=== PATIENT | female | born 1965 | race Caucasian/White ===

== ENCOUNTER → 2019-05-30 08:46 | Outpatient (BNVA) | payer BC, SELFPAY | PROVIDERS: Family Provider Nurse Practitioner Family; PCP Nurse Practitioner Family; Visit Provider Psychiatry & Neurology Psychiatry | DX: F34.1 Dysthymic disorder (principal); F41.1 Generalized anxiety disorder | CPT/HCPCS: 99213 ==

== ENCOUNTER → 2019-08-21 07:20 | Outpatient (BNVA) | payer BC, SELFPAY | PROVIDERS: Family Provider Nurse Practitioner Family; PCP Nurse Practitioner Family; Visit Provider Psychiatry & Neurology Psychiatry | DX: F41.1 Generalized anxiety disorder (principal); F34.1 Dysthymic disorder | CPT/HCPCS: 99213 ==

== ENCOUNTER → 2019-09-15 10:31 | Outpatient (BNVA) | payer BC, SELFPAY | PROVIDERS: Family Provider Nurse Practitioner Family; PCP Nurse Practitioner Family; Visit Provider Family Medicine | DX: D64.9 Anemia, unspecified (principal); Z00.00 Encounter for general adult medical examination without abnormal findings; J45.909 Unspecified asthma, uncomplicated; Z12.31 Encounter for screening mammogram for malignant neoplasm of breast; J30.2 Other seasonal allergic rhinitis; F41.1 Generalized anxiety disorder | CPT/HCPCS: 80053; 80061; 84443; 85025 ==

== ENCOUNTER → 2019-11-13 07:32 | Outpatient (BNVA) | payer BC, SELFPAY | PROVIDERS: Family Provider Nurse Practitioner Family; PCP Nurse Practitioner Family; Visit Provider Psychiatry & Neurology Psychiatry | DX: F41.1 Generalized anxiety disorder (principal); F34.1 Dysthymic disorder | CPT/HCPCS: 99213 ==

== ENCOUNTER → 2020-02-26 07:17 | Outpatient (BNVA) | payer BC, SELFPAY | PROVIDERS: Family Provider Nurse Practitioner Family; PCP Nurse Practitioner Family; Visit Provider Psychiatry & Neurology Psychiatry | DX: F41.1 Generalized anxiety disorder (principal); F34.1 Dysthymic disorder | CPT/HCPCS: 99213 ==

== ENCOUNTER → 2020-05-19 07:24 | Outpatient (BNVA) | payer BC, SELFPAY | PROVIDERS: Family Provider Nurse Practitioner Family; PCP Family Medicine; Visit Provider Psychiatry & Neurology Psychiatry | DX: F34.1 Dysthymic disorder (principal); F41.1 Generalized anxiety disorder | CPT/HCPCS: 99213 ==

== ENCOUNTER → 2020-08-17 07:24 | Outpatient (BNVA) | payer BC, SELFPAY | PROVIDERS: Family Provider Nurse Practitioner Family; PCP Family Medicine; Visit Provider Psychiatry & Neurology Psychiatry | DX: F34.1 Dysthymic disorder (principal); F41.1 Generalized anxiety disorder | CPT/HCPCS: 99214 ==

== ENCOUNTER → 2020-09-29 07:24 | Outpatient (BNVA) | payer BC, SELFPAY | PROVIDERS: Family Provider Nurse Practitioner Family; PCP Family Medicine; Visit Provider Psychiatry & Neurology Psychiatry | DX: F41.1 Generalized anxiety disorder (principal); F34.1 Dysthymic disorder | CPT/HCPCS: 99213 ==

== ENCOUNTER → 2020-10-27 10:17 | Outpatient (BNVA) | payer BC, SELFPAY | PROVIDERS: Family Provider Nurse Practitioner Family; PCP Family Medicine; Visit Provider Family Medicine | DX: J45.909 Unspecified asthma, uncomplicated (principal); D64.9 Anemia, unspecified; E55.9 Vitamin D deficiency, unspecified; E78.5 Hyperlipidemia, unspecified | CPT/HCPCS: 80053; 80061; 82306; 83540; 84443; 85025 ==

== ENCOUNTER → 2021-02-01 12:07 | Outpatient (BNVA) | payer BC, SELFPAY | PROVIDERS: Family Provider Nurse Practitioner Family; PCP Family Medicine; Visit Provider Family Medicine | DX: E55.9 Vitamin D deficiency, unspecified (principal); E78.5 Hyperlipidemia, unspecified; F41.1 Generalized anxiety disorder; J45.909 Unspecified asthma, uncomplicated | CPT/HCPCS: 80053; 80061; 82306; 84443; 85025 ==

== ENCOUNTER → 2022-01-05 11:00 | Outpatient (BNVA) | payer OTHER, SELFPAY | PROVIDERS: Family Provider Nurse Practitioner Family; PCP Family Medicine; Visit Provider Family Medicine | DX: J45.909 Unspecified asthma, uncomplicated (principal); D64.9 Anemia, unspecified; E78.5 Hyperlipidemia, unspecified; F41.1 Generalized anxiety disorder; E55.9 Vitamin D deficiency, unspecified; Z12.11 Encounter for screening for malignant neoplasm of colon | CPT/HCPCS: 80053; 80061; 82306; 83540; 84443 ==

== ENCOUNTER → 2022-04-04 10:10 | Outpatient (BNVA) | payer OTHER, SELFPAY | PROVIDERS: Family Provider Nurse Practitioner Family; PCP Family Medicine; Visit Provider Nurse Practitioner Family | DX: R50.9 Fever, unspecified (principal); Z20.822 Contact with and (suspected) exposure to COVID-19; U07.1 COVID-19 | CPT/HCPCS: 87400; 87426 ==

== ENCOUNTER 2022-04-24 07:25 | Day surgery (SDC) | payer OTHER, SELFPAY ==
[2022-04-20 10:14] VITALS: BMI 30.2
[2022-04-24 07:47] VITALS: BP 133/81; PULSE 75; RESP 18; TEMP 36.6; O2SAT 98
[2022-04-24] MEDS: sodium chloride 0.9% 1,000 ML 30 ML IV (07:53)
--- NOTE | 2022-04-24 08:24 | ANES.PREANE2 ---
Pre-Anesthetic Assessment Height/Weight: Height 1.55 m Weight 72.575 kg Temp Pulse Resp BP Pulse Ox O2 Del Method 97.8 F 75 18 133/81 98 04/24/22 07:47 04/24/22 07:47 04/24/22 07:47 04/24/22 07:47 04/24/22 07:47 04/24/22 07:47 Operation Date: 04/24/22 09:00 Proposed Procedures p Colonoscopy 80311,Z12.11(Not Applicable) - Gurpreet Houston DO Familial anesthetic complications: None Was Beta Fatemeh taken within 24 hours: N/A Was Clonidine taken within 24 hours: N/A Last intake: Intake Last Liquid Date 04/23/22 Last Liquid Time 22:00 Last Solid Date 04/22/22 Last Solid Time 18:00 Social No alcohol and No tobacco former smoker Exam alert, oriented x 3, clear to auscultation bilaterally and regular rate & rhythm Airway Mallampati: Class III Dentition: false Pulmonary Asthma CV/HEM Anemia GI celiac Metabolic Hyperlipidemia Anesthetic Plan ASA status: 3 Anesthesia: MAC Risk of > 500 ml blood loss (7ml/kg in children): No Medications/Allergies Home Medications Medication Instructions Recorded Confirmed Last Taken Type Lactobacil.acidophilus-Bifido.animalis 2 cap PO QDAY 05/30/19 04/20/22 04/22/22 History 5 billion cell sprinkle capsule (Probiotic) calcium-magnesium 300 mg-300 mg 1 tab PO QDAY 05/30/19 04/20/22 04/22/22 History tablet cetirizine 10 mg capsule (Zyrtec) 10 mg PO QDAY 05/30/19 04/20/22 04/22/22 History cholecalciferol (vitamin D3) 125 5,000 unit PO QDAY 05/30/19 04/20/22 04/22/22 History mcg (5,000 unit) capsule ferrous sulfate 325 mg (65 mg 325 mg PO .QOTHERDAY 05/30/19 04/20/22 04/22/22 History iron) tablet krill oil 500 mg capsule 350 mg PO DAILY 11/12/19 04/20/22 04/22/22 History albuterol sulfate 2.5 mg/3 mL 2.5 mg (3 mL) inhalation QID PRN 02/01/21 04/24/22 10 Months Ago Rx (0.083 %) solution for nebulization shortness of breath or wheezing ~06/25/21 #75 mL hose for nebulizer #1 ea 02/01/21 04/20/22 Unknown Rx fluoxetine 40 mg capsule (Prozac) 40 mg PO QDAY #90 caps 08/31/21 04/20/22 04/22/22 Rx alprazolam 0.5 mg tablet (Xanax) 0.5 mg PO QDAY PRN anxiety #30 tabs 11/30/21 04/24/22 04/24/22 06:00 Rx atorvastatin 20 mg tablet (Lipitor) 20 mg PO DAILY #30 tabs 01/05/22 04/20/22 04/22/22 Rx albuterol sulfate 90 mcg/actuation 2 inh inhalation QID PRN Shortness 04/20/22 04/24/22 04/24/22 History aerosol inhaler Of Breath fluticasone propionate 110 1 puff inhalation BID PRN 04/20/22 04/20/22 04/24/22 History mcg/actuation HFA aerosol inhaler Shortness Of Breath (Flovent HFA) montelukast 10 mg tablet 10 mg PO DAILY 04/20/22 04/20/22 04/22/22 History Allergies Allergy/AdvReac Type Severity Reaction Status Date / Time gluten Allergy Unknown Unknown Verified 04/20/22 15:44 Penicillins Allergy Unknown Unknown Verified 04/20/22 15:44 Current Medications Generic Name Dose Route Start Last Admin Trade Name Freq PRN Reason Stop Dose Admin Sodium Chloride 1,000 mls @ 30 mls/hr 04/24/22 07:45 04/24/22 07:53 Sodium Chloride 0.9% IV 04/25/22 07:44 30 mls/hr .Q24H CAITLIN Administration PFSH Anesthesia Medical History Dysthymic disorder Generalized anxiety disorder Psychiatric care Social History Smoking and tobacco status: former smoker (1/2 PPD x 15 yrs, quit 1999) Data Anesthesia Cardiac Studies: No Data to Display
--- NOTE | 2022-04-24 09:00 | P.HP_ITS ---
Providers/Chief Complaint Primary Care Provider: Lorene Guerin MD Chief Complaint: Z12.11 encounter for screening History of Present Illness Joyce Garza is a 56 year old female who presents for her second for screening colonoscopy. Her last colonoscopy was 10 years ago and was within normal limits. She denies any abdominal pain, nausea, emesis, diarrhea, constipation, hematochezia and/or melena. Review of Systems General: Reports: 10 or more systems reviewed and unremarkable except in HPI and below Medications/Allergies Home Medications Medication Instructions Recorded Confirmed Last Taken Type Lactobacil.acidophilus-Bifido.animalis 2 cap PO QDAY 05/30/19 04/20/22 04/22/22 History 5 billion cell sprinkle capsule (Probiotic) calcium-magnesium 300 mg-300 mg 1 tab PO QDAY 05/30/19 04/20/22 04/22/22 History tablet cetirizine 10 mg capsule (Zyrtec) 10 mg PO QDAY 05/30/19 04/20/22 04/22/22 History cholecalciferol (vitamin D3) 125 5,000 unit PO QDAY 05/30/19 04/20/22 04/22/22 History mcg (5,000 unit) capsule ferrous sulfate 325 mg (65 mg 325 mg PO .QOTHERDAY 05/30/19 04/20/22 04/22/22 History iron) tablet krill oil 500 mg capsule 350 mg PO DAILY 11/12/19 04/20/22 04/22/22 History albuterol sulfate 2.5 mg/3 mL 2.5 mg (3 mL) inhalation QID PRN 02/01/21 04/24/22 10 Months Ago Rx (0.083 %) solution for nebulization shortness of breath or wheezing ~06/25/21 #75 mL hose for nebulizer #1 ea 02/01/21 04/20/22 Unknown Rx fluoxetine 40 mg capsule (Prozac) 40 mg PO QDAY #90 caps 08/31/21 04/20/22 04/22/22 Rx alprazolam 0.5 mg tablet (Xanax) 0.5 mg PO QDAY PRN anxiety #30 tabs 11/30/21 04/24/22 04/24/22 06:00 Rx atorvastatin 20 mg tablet (Lipitor) 20 mg PO DAILY #30 tabs 01/05/22 04/20/22 04/22/22 Rx albuterol sulfate 90 mcg/actuation 2 inh inhalation QID PRN Shortness 04/20/22 04/24/22 04/24/22 History aerosol inhaler Of Breath fluticasone propionate 110 1 puff inhalation BID PRN 04/20/22 04/20/22 04/24/22 History mcg/actuation HFA aerosol inhaler Shortness Of Breath (Flovent HFA) montelukast 10 mg tablet 10 mg PO DAILY 04/20/22 04/20/22 04/22/22 History Allergies Allergy/AdvReac Type Severity Reaction Status Date / Time gluten Allergy Unknown Unknown Verified 04/20/22 15:44 Penicillins Allergy Unknown Unknown Verified 04/20/22 15:44 PFSH Acute PFSH: Medical History Dysthymic disorder Generalized anxiety disorder Psychiatric care Social History Smoking and tobacco status: former smoker (1/2 PPD x 15 yrs, quit 1999) Vitals/I&O/Wt Last Vital Signs Temp 97.8 F 04/24/22 07:47 Pulse 75 04/24/22 07:47 Resp 18 04/24/22 07:47 BP 133/81 04/24/22 07:47 Pulse Ox 98 04/24/22 07:47 O2 Del Method 04/24/22 07:47 Physical Exam Narrative: General : Patient is well developed , no acute distress, oriented x3 Head : Normal cephalic, a-traumatic. Ears : Pinnae and external canal are normal. Hearing is normal. Eyes : PERRLA, Sclera and injection are normal. No conjunctival discharge. Nose : Mucous membranes are without erythema. Throat : buccal mucosa is normal, gums are without significant recession or hypertrophy. Lungs : Equal chest rise bilaterally, no use of accessory muscles, trachea is midline. Cor : Rate and rhythm are normal. Abdomen : Soft, ND, NT, no g/r/m Extremities : No edema, no cyanosis or clubbing, dorsalis pedis pulses are present bilaterally, non-tender to palpation of calves. Upper extremities are normal bilaterally. Back : non-tender to palpation, no CVA tenderness. Neuro : CN II - XII intact, Upper and lower extremities have equal and full strength A&P Assessment and plan (1) Screen for colon cancer: Plan Colonoscopy The risks and benefits of the procedure, including bleeding, infection, intestinal perforation requiring surgery, missed lesion were explained to the patient. She is understanding of the risks and wishes to proceed. Attestations Medical Necessity Statement*: home Coding Level of Care Code Acute Adolescent Coordinator for Chg Fwd Diagnoses Screen for colon cancer Z12.11
[2022-04-24 09:32] VITALS: BP 93/60; PULSE 71; RESP 16; O2SAT 94
[2022-04-24 09:47] VITALS: BP 99/68; PULSE 62; RESP 18; O2SAT 96
--- NOTE | 2022-04-24 14:08 | ANE.PACU2 ---
Inpatient post-anesthesia follow up: Airway intact: Yes Vital signs: Temperature 97.8 F Pulse Rate 62 Respiratory Rate 18 Blood Pressure 99/68 Pulse Oximetry 96 Oxygen Delivery Me thod Room Air Oxygen Flow Rate 4 Fraction of Inspir ed Oxygen Hydration adequate: Yes Nausea and vomiting: No Pain level: 1 Mental status: Baseline
== END 2022-04-24 10:09 | disposition home or self-care (01) ==
PROVIDERS: PCP Family Medicine; Visit Provider Surgery
PROC: 0DJD8ZZ Inspection of Lower Intestinal Tract, Via Natural or Artificial Opening Endoscopic (ICD-10-PCS; CPT 45378; principal; 2022-04-24 09:00)
DX: Z12.11 Encounter for screening for malignant neoplasm of colon (principal); K64.8 Other hemorrhoids; K57.30 Diverticulosis of large intestine without perforation or abscess without bleeding; D12.2 Benign neoplasm of ascending colon; E78.5 Hyperlipidemia, unspecified; Z87.891 Personal history of nicotine dependence
CPT/HCPCS: 45385; 88305; J2704; J7030

== ENCOUNTER → 2022-09-06 10:08 | Outpatient (BNVA) | payer OTHER, SELFPAY | PROVIDERS: PCP Family Medicine; Visit Provider Family Medicine | DX: E78.5 Hyperlipidemia, unspecified (principal); E55.9 Vitamin D deficiency, unspecified; D64.9 Anemia, unspecified; J45.909 Unspecified asthma, uncomplicated; F41.9 Anxiety disorder, unspecified | CPT/HCPCS: 80053; 80061; 82306; 83540; 84443; 85025 ==

== ENCOUNTER → 2023-06-13 11:10 | Outpatient (BNVA) | payer OTHER, SELFPAY | PROVIDERS: PCP Family Medicine; Visit Provider Nurse Practitioner Family | DX: R50.9 Fever, unspecified (principal) | CPT/HCPCS: 87400; 87426 ==

== ENCOUNTER → 2024-06-10 09:02 | Outpatient (BNVA) | payer OTHER, SELFPAY | PROVIDERS: PCP Nurse Practitioner Family; Visit Provider Nurse Practitioner Family | DX: J45.909 Unspecified asthma, uncomplicated (principal); E78.5 Hyperlipidemia, unspecified; E55.9 Vitamin D deficiency, unspecified; J98.11 Atelectasis; K44.9 Diaphragmatic hernia without obstruction or gangrene | CPT/HCPCS: 71046; 80053; 80061; 82306; 82607; 84443; 85025 ==

== ENCOUNTER → 2024-07-09 11:33 | Outpatient (BNVA) | payer OTHER, SELFPAY | PROVIDERS: PCP Nurse Practitioner Family; Visit Provider Nurse Practitioner Family | DX: R79.89 Other specified abnormal findings of blood chemistry (principal) | CPT/HCPCS: 80053 ==

== ENCOUNTER → 2024-10-23 10:16 | Outpatient (BNVA) | payer OTHER, SELFPAY | PROVIDERS: PCP Nurse Practitioner Family; Visit Provider Nurse Practitioner Family | DX: E78.5 Hyperlipidemia, unspecified (principal); E55.9 Vitamin D deficiency, unspecified; D64.9 Anemia, unspecified | CPT/HCPCS: 80053; 80061; 82306; 82607; 84443; 85025 ==

== ENCOUNTER → 2025-01-27 15:17 | Outpatient (BNVA) | payer OTHER, SELFPAY | PROVIDERS: PCP Nurse Practitioner Family; Visit Provider Nurse Practitioner Family | DX: R50.9 Fever, unspecified (principal) | CPT/HCPCS: 87400; 87426 ==